=== PATIENT | female | born 1970 | race Caucasian/White ===

== ENCOUNTER → 2017-08-04 | Outpatient (REF) ==
[2005-10-31 18:11] VITALS: TEMP 97.2
== END ==
LOC: ZLAB.WCH 14:23
DX: Z01.89 Encounter for other specified special examinations (principal)

== ENCOUNTER → 2017-11-27 | Outpatient (CLI) | payer BC | LOC: MC.RAD 09:48 | DX: Z12.31 Encounter for screening mammogram for malignant neoplasm of breast (principal); N64.89 Other specified disorders of breast ==

== ENCOUNTER → 2017-12-02 | Outpatient (CLI) | payer BC | LOC: MC.RAD 12:52 | DX: Z12.31 Encounter for screening mammogram for malignant neoplasm of breast (principal) ==

== ENCOUNTER → 2018-03-30 | Outpatient (CLI) | payer BC | LOC: COL.RAD 11:59 | DX: R10.9 Unspecified abdominal pain (principal) | CPT/HCPCS: Q9967 ==

== ENCOUNTER → 2018-12-03 | Outpatient (CLI) | payer BC | LOC: MC.RAD 13:34 | DX: Z12.31 Encounter for screening mammogram for malignant neoplasm of breast (principal) ==

== ENCOUNTER → 2019-12-05 | Outpatient (CLI) | payer BC | LOC: MC.RAD 11:15 | DX: Z12.31 Encounter for screening mammogram for malignant neoplasm of breast (principal) ==

== ENCOUNTER → 2020-12-06 | Outpatient (CLI) | payer BC | LOC: MC.RAD 09:31 | DX: Z12.31 Encounter for screening mammogram for malignant neoplasm of breast (principal); N64.89 Other specified disorders of breast ==

== ENCOUNTER → 2020-12-10 | Outpatient (CLI) | payer BC | LOC: MC.RAD 06:57 | DX: N60.02 Solitary cyst of left breast (principal); N60.12 Diffuse cystic mastopathy of left breast ==

== ENCOUNTER → 2021-10-31 | Outpatient (CLI) | payer BC | LOC: MC.RAD 13:59 | DX: Z12.31 Encounter for screening mammogram for malignant neoplasm of breast (principal) ==

== ENCOUNTER → 2023-11-23 | Outpatient (CLI) | payer BC ==
[2005-10-31 18:11] VITALS: TEMP 97.2
== END ==
LOC: MC.RAD 08:05
DX: Z12.31 Encounter for screening mammogram for malignant neoplasm of breast (principal); N63.11 Unspecified lump in the right breast, upper outer quadrant